=== PATIENT | female | born 1960 | race Caucasian/White ===

== ENCOUNTER → 2017-02-10 | Outpatient (CLI) | payer BC ==
[~2017-02-10] MED LIST: CZR50 PO; HYDR-5688 PO; HYDR12.55 PO; LIVALO PO; METF-384 PO; NAPR220T40 PO; NXM/40 PO
--- NOTE | 2017-02-10 17:00 | DIAGNOSTIC IMAGING REPORT ---
LEFT KNEE 3 VIEWS CLINICAL HISTORY: M25.562 pain COMPARISON: None. DISCUSSION: The bones and joint spaces appear intact. There is no evidence of fracture, dislocation or bony disease. There is no evidence for soft tissue swelling. IMPRESSION: Negative study. Electronically signed by: Perico Smith M.D. 02/10/2017 4:59 PM Dictated Date/Time: 02/10/2017 4:58 PM
--- NOTE | 2017-02-10 17:02 | DIAGNOSTIC IMAGING REPORT ---
LEFT FOOT MIN 3 VIEWS ROUTINE CLINICAL HISTORY: LT FOOT PAIN pain COMPARISON: None. DISCUSSION: Moderate degenerative change. Heel spur. No acute bony abnormality. Cortical margins are intact. There is no evidence for soft tissue swelling. IMPRESSION: Moderate degenerative change. No acute process. Electronically signed by: Perico Smith M.D. 02/10/2017 5:00 PM Dictated Date/Time: 02/10/2017 4:59 PM
== END | disposition home or self-care (01) ==
LOC: C.RAD 16:01
PROVIDERS: ATTEND Physician Assistant Medical
DX: M79.672 Pain in left foot (principal); M25.562 Pain in left knee

== ENCOUNTER → 2017-04-01 | Outpatient (CLI) | payer BC | END | disposition home or self-care (01) | LOC: C.CPL 08:13 | PROVIDERS: ATTEND Orthopaedic Surgery Sports Medicine | DX: Z01.810 Encounter for preprocedural cardiovascular examination (principal) ==

== ENCOUNTER → 2017-05-26 | Outpatient (CLI) | payer BC ==
[2017-05-26 09:34] LABS: BASO % 0.3 %; BASO ABS # 0.02 K/uL (0-0.2); COMPLETE YES; EOS % 1.2 %; IG% 0.5 %; LYMPH % 27.2 %; LYMPH ABS # 1.78 K/uL (1.2-3.4); MEAN CELL VOLUME 75.6 fL (80-100); MEAN CORPUSCULAR HEMOGLOBIN 23.1 pg (25-34); MEAN CORPUSCULAR HGB CONC 30.6 g/dl (32-36); MEAN PLATELET VOLUME 10.5 fL (7.4-10.4); MONO % 7.9 %; NEUT % 62.9 %; PLATELET COUNT 417 K/uL (130-400); WHITE BLOOD COUNT 6.55 K/uL (4.8-10.8)
[2017-05-26 09:56] LABS: ALT/SGPT 20 U/L (12-78); BLOOD UREA NITROGEN 12 mg/dl (7-18); BUN/CREATININE RATIO 18.5 (10-20); CALCIUM 9.4 mg/dl (8.5-10.1); CARBON DIOXIDE 27 mmol/L (21-32); CHLORIDE 106 mmol/L (98-107); CREATININE 0.62 mg/dl (0.60-1.20); GLUCOSE 125 mg/dl (70-99); POTASSIUM 4.1 mmol/L (3.5-5.1); SODIUM 140 mmol/L (136-145)
[2017-05-26 09:59] LABS: ALB/GLOB RATIO 1.1 (0.9-2); ALKALINE PHOSPHATASE 94 U/L (45-117); AST/SGOT 13 U/L (15-37)
== END | disposition home or self-care (01) ==
LOC: C.LAB 08:05
PROVIDERS: ATTEND Internal Medicine Hematology & Oncology
DX: C54.1 Malignant neoplasm of endometrium (principal)

== ENCOUNTER → 2017-05-29 | Outpatient (CLI) | payer BC ==
[2017-05-29 12:37] LABS: BLOOD UREA NITROGEN 18 mg/dl (7-18); CREATININE 0.57 mg/dl (0.60-1.20)
== END | disposition home or self-care (01) ==
LOC: C.LAB 11:44
PROVIDERS: ATTEND Family Medicine
DX: E11.9 Type 2 diabetes mellitus without complications (principal)

== ENCOUNTER → 2018-03-11 | Outpatient (CLI) | payer OTHER ==
[2018-03-11 09:35] LABS: HEMATOCRIT 40.7 % (37-47); HEMOGLOBIN 13.7 g/dL (12.0-16.0); MEAN CELL VOLUME 84.6 fL (80-100); MEAN CORPUSCULAR HEMOGLOBIN 28.5 pg (25-34); MEAN CORPUSCULAR HGB CONC 33.7 g/dl (32-36); PLATELET COUNT 298 K/uL (130-400); RED CELL DISTRIBUTION WIDTH CV 12.7 % (11.5-14.5); RED CELL DISTRIBUTION WIDTH SD 38.7 fL (36.4-46.3); WHITE BLOOD COUNT 6.67 K/uL (4.8-10.8)
[2018-03-11 09:58] LABS: ALBUMIN 3.8 gm/dl (3.4-5.0); ALKALINE PHOSPHATASE 114 U/L (45-117); ALT/SGPT 28 U/L (12-78); AST/SGOT 19 U/L (15-37); BLOOD UREA NITROGEN 23 mg/dl (7-18); CALCIUM 9.3 mg/dl (8.5-10.1); CARBON DIOXIDE 28 mmol/L (21-32); CHOLESTEROL 174 mg/dl (0-200); CREATININE 0.69 mg/dl (0.60-1.20); GLUCOSE 181 mg/dl (70-99); SODIUM 136 mmol/L (136-145); TOTAL PROTEIN 7.2 gm/dl (6.4-8.2)
[2018-03-11 10:04] LABS: LDL CHOLESTEROL CALCULATED 86 mg/dl
== END | disposition home or self-care (01) ==
LOC: C.LAB 07:58
PROVIDERS: ATTEND Family Medicine
DX: D64.9 Anemia, unspecified (principal); E11.9 Type 2 diabetes mellitus without complications; I10 Essential (primary) hypertension